=== PATIENT | female | born 1950 | race Caucasian/White ===

== ENCOUNTER 2024-09-25 16:54 | Outpatient (CLI) | payer MEDICARE, SELFPAY ==
[2024-09-25 17:35] LABS: ESR 13 mm/hr (0-30)
[2024-09-25 18:56] LABS: C-Reactive Protein 0.53 mg/dL (<or=0.5)
== END 2024-09-25 16:55 | disposition home or self-care (01) ==
LOC: LBO 16:54
PROVIDERS: PCP Family Medicine; Visit Provider Registered Nurse Maternal Newborn
DX: R51.9 Headache, unspecified (principal); J34.89 Other specified disorders of nose and nasal sinuses
CPT/HCPCS: 36415; 85652; 86140